=== PATIENT | male | born 1995 | race African-American/Black ===

== ENCOUNTER 2020-10-19 07:39 | Outpatient (CLI) | payer OTHER | END 2020-10-19 07:40 | disposition home or self-care (01) | LOC: CSHULT 07:39 | PROVIDERS: ATTEND Physician Assistant | DX: K59.00 Constipation, unspecified (principal); R43.8 Other disturbances of smell and taste; E63.9 Nutritional deficiency, unspecified | CPT/HCPCS: 93975 ==

== ENCOUNTER 2021-05-17 15:26 | Emergency (ER) | payer SELFPAY ==
[2021-05-17] MEDS ORDERED: Boostrix 0.5 ML (Tdap) VIAL ONE (16:00)
[2021-05-17] MEDS ORDERED: Lidocaine 1% w/Epinephrine 1:100K 20 ML VIAL ONE (16:02)
== END 2021-05-17 16:40 | disposition home or self-care (01) ==
LOC: CSHERS 15:26
DX: S01.81XA Laceration without foreign body of other part of head, initial encounter (principal); F17.210 Nicotine dependence, cigarettes, uncomplicated; Z23 Encounter for immunization; W19.XXXA Unspecified fall, initial encounter
CPT/HCPCS: 12013; 90471; 90715

== ENCOUNTER 2021-05-23 08:36 | Emergency (ER) | payer SELFPAY | END 2021-05-23 09:25 | disposition home or self-care (01) | LOC: CSHERS 08:36 | DX: Z48.02 Encounter for removal of sutures (principal); S01.81XD Laceration without foreign body of other part of head, subsequent encounter; F17.210 Nicotine dependence, cigarettes, uncomplicated ==